=== PATIENT | female | born 1975 | race Caucasian/White ===

== ENCOUNTER → 2021-11-04 12:01 | Outpatient (CLI) | payer OTHER, SELFPAY ==
--- NOTE | ~2021-11-04 | DEXA_ITS ---
Bone Density Report Name: OCHOA FRAGOSO Age: 46 Sex: Female Ethnicity: White Date of : 1975 Indication: postmenopausal; height loss; hysterectomy; Referring Provider: CESAR JERRY Study: Bone densitometry was performed. Exam Date: November 04, 2021 Accession number: [id number] Bone Density: Region BMD T-score Z-score Classification AP Spine (L1-L4) 1.012 -0.3 0.1 Normal Femoral Neck (Left) 0.782 -0.6 -0.2 Normal Total Hip (Left) 0.946 0.0 0.3 Normal Femoral Neck (Right) 0.769 -0.7 -0.3 Normal Total Hip (Right) 0.918 -0.2 0.1 Normal Total Hip Mean 0.932 -0.1 0.2 Normal World Health Organization criteria for BMD impression classify patients as: Normal (T-score at or above -1.0), Osteopenia (T-score between -1.0 and -2.5), or Osteoporosis (T-score at or below -2.5). 10-year Fracture Risk: FRAX not reported because: All T-scores for Spine Total, Hip Total, Femoral Neck at or above -1.0 Clinical Information Provided by Patient: Has used the following medications: Vitamin D, MTV, ARMOUR THYROID Has the following medical conditions: Hysterectomy Patient maximum height was 68.0 Menopause Age: 30 Drinks caffeinated beverages Onset of menses at age 13 Number of children 3 Impression: The patient has normal bone mass. Discussion: BONE DENSITY IS ABOVE THE MINIMUM DESIRABLE LEVEL AT ALL SKELETAL SITES TESTED. This patient?s bone mineral density is above the minimum desirable level (T-score -1.0 or better) at all sites measured. The patient should follow a healthful lifestyle (good nutrition with adequate calcium and vitamin D, and appropriate weight-bearing exercise). Follow-Up: Consider repeating this study in 5 years or sooner if there is some new clinical indication. Reported by: [facility] on 11/04/2021 12:41:00 PM. Reviewed, dictated and finalized at location AMikayla BUCK
--- NOTE | ~2021-11-04 | MM_ITS ---
EXAMINATION: MM screening nevin BI w keith HISTORY: Screening mammogram TECHNIQUE: Craniocaudal and mediolateral oblique 3-D tomosynthesis images were obtained and synthetic 2-D images were generated. CAD analysis was submitted and interpreted. COMPARISON: No prior mammogram is available for comparison at this institution. BREAST PARENCHYMAL COMPOSITION: There are scattered areas of fibroglandular density. FINDINGS: RIGHT BREAST: There is no suspicious mass, calcification, or architectural distortion to suggest taylor gnancy. LEFT BREAST: There is a possible mass in the upper outer quadrant of the breast. IMPRESSION: 1. Possible left breast mass which may represent the patient's baseline however no comparison is curr ently available. 2. Comparison with prior mammograms is necessary. BI-RADS Category 0: Incomplete: Needs comparison with prior mammograms. Reviewed, dictated and finalized at location A. IMPRESSION: 1. Possible left breast mass which may represent the patient's baseline however no comparison is currently available. 2. Comparison with prior mammograms is necessary. BI-RADS Category 0: Incomplete: Needs comparison with prior mammograms.
== END ==
PROVIDERS: PCP Family Medicine; Visit Provider Obstetrics & Gynecology
DX: Z12.31 Encounter for screening mammogram for malignant neoplasm of breast (principal); Z78.0 Asymptomatic menopausal state; R92.8 Other abnormal and inconclusive findings on diagnostic imaging of breast
CPT/HCPCS: 77063; 77067; 77080

== ENCOUNTER → 2021-12-07 09:07 | Outpatient (CLI) | payer OTHER, SELFPAY ==
--- NOTE | ~2021-12-07 | MMUS_ITS ---
EXAMINATION: MM diagnostic nevin LT w keith, US breast LT limited HISTORY: Possible mass in upper outer quadrant of left breast on 11/04/2021 screening mammogram TECHNIQUE: Additional 3-D tomosynthesis images of the left breast were performed and synthetic 2-D im ages were generated. CAD analysis was submitted and interpreted. High resolution targeted posterior l eft 2-3:00 breast ultrasound was performed. COMPARISON: 11/04/2021, 08/08/2020, 06/15/2018 bilateral screening mammogram examinations FINDINGS: MAMMOGRAPHIC FINDINGS: Approximately 3.8 x 6 mm circumscribed mass is suggested posteriorly in the outer mid to upper left b reast (ML Tomosynthesis image 24/85). ULTRASOUND: No suspicious mass or shadowing is detected in the area of concern. IMPRESSION: 1. Probable benign finding 2. 6 month diagnostic left mammogram follow-up is recommended, with ultrasound if required BI-RADS category 3, probably benign findings. Reviewed, dictated and finalized at location A. IMPRESSION: 1. Probable benign finding 2. 6 month diagnostic left mammogram follow-up is recommended, with ultrasound if required BI-RADS category 3, probably benign findings.
== END ==
PROVIDERS: PCP Family Medicine; Visit Provider Obstetrics & Gynecology
DX: N63.21 Unspecified lump in the left breast, upper outer quadrant (principal)
CPT/HCPCS: 76642; 77061; 77065; G0279

== ENCOUNTER → 2022-06-09 08:51 | Outpatient (CLI) | payer OTHER, SELFPAY ==
--- NOTE | ~2022-06-09 | MMUS_ITS ---
EXAMINATION: MM diagnostic nevin LT w keith, US breast LT limited HISTORY: Follow-up left breast asymmetry. TECHNIQUE: Additional 3-D tomosynthesis images of the left breast were performed and synthetic 2-D im ages were generated. CAD analysis was submitted and interpreted. High resolution Limited left breast ultrasound was performed. COMPARISON: Comparison to multiple prior studies sequentially, with oldest reviewed study dated 05/20. BREAST PARENCHYMAL COMPOSITION: BREAST PARENCHYMAL COMPOSITION: There are scattered areas of fibroglandular density. FINDINGS: MAMMOGRAPHIC FINDINGS: There is a stable small mass in the upper outer quadrant of the left breast posteriorly with central lucency and circumscribed margins. ULTRASOUND: Limited left breast ultrasound: At 2-3:00, 6 cm from the nipple there is an oval circumscribed hypoec hoic mass with internal echogenic foci measuring 8 x 3 x 6 mm, most likely benign intramammary lymph node. IMPRESSION: 1. Probable benign left breast mass. 2. Recommend 6 month follow-up diagnostic left mammogram and ultrasound BI-RADS category 3, probably benign findings. Reviewed, dictated and finalized at location A. ER IMPRESSION: 1. Probable benign left breast mass. 2. Recommend 6 month follow-up diagnostic left mammogram and ultrasound BI-RADS category 3, probably benign findings.
== END ==
PROVIDERS: PCP Obstetrics & Gynecology; Visit Provider Obstetrics & Gynecology
DX: R92.8 Other abnormal and inconclusive findings on diagnostic imaging of breast (principal)
CPT/HCPCS: 76642; 77061; 77065; G0279

== ENCOUNTER → 2022-06-22 11:07 | Outpatient (CLI) | payer OTHER, SELFPAY ==
--- NOTE | ~2022-06-22 | XR_ITS ---
XR ankle RT min 3V DATE: 06/22/2022 11:23 INDICATION: Right ankle injury TECHNIQUE: 4 views COMPARISON: None FINDINGS: No fracture or dislocation of the ankle or disruption of the ankle mortise. No periosteal r eaction or bone destruction. IMPRESSION: Negative Reviewed, dictated and finalized at location B. MACY BUYER IMPRESSION: Negative
== END ==
PROVIDERS: PCP Family Medicine; Visit Provider Family Medicine
DX: S99.911A Unspecified injury of right ankle, initial encounter (principal); T14.90XA Injury, unspecified, initial encounter
CPT/HCPCS: 73610

== ENCOUNTER → 2022-12-07 09:21 | Outpatient (CLI) | payer OTHER, SELFPAY ==
--- NOTE | ~2022-12-07 | MMUS_ITS ---
EXAMINATION: MM diagnostic nevin BI w keith, US breast LT limited HISTORY: Six-month follow-up of 2-3:00 oval circumscribed hypoechoic mass TECHNIQUE: ML, MLO and CC 3-D tomosynthesis images of both breasts were performed and synthetic 2-D i mages were generated. CAD analysis was submitted and interpreted. High resolution targeted left breas t ultrasound examination at L2-3 o'clock 6 cm from nipple was performed. COMPARISON: 06/09/2023 diagnostic left mammogram and limited left breast ultrasound 12/07/2021 diagnostic left mammogram and limited left breast ultrasound 11/04/2021 bilateral screening mammogram BREAST PARENCHYMAL COMPOSITION: The breasts are almost entirely fatty. FINDINGS: MAMMOGRAPHIC FINDINGS: No suspicious mass or architectural distortion, malignant calcification, skin thickening or retractio n or significant new or developing density is detected. ULTRASOUND: No suspicious mass or shadowing, cyst or other significant sonographic finding is noted in the 2-3 o' clock lesion region. IMPRESSION: 1. No mammographic evidence of malignancy 2. Routine annual mammographic screening is recommended BI-RADS Category 1: Negative Reviewed, dictated and finalized at location A. IMPRESSION: 1. No mammographic evidence of malignancy 2. Routine annual mammographic screening is recommended BI-RADS Category 1: Negative
== END ==
PROVIDERS: PCP Family Medicine; Visit Provider Obstetrics & Gynecology
DX: R92.8 Other abnormal and inconclusive findings on diagnostic imaging of breast (principal); N63.20 Unspecified lump in the left breast, unspecified quadrant
CPT/HCPCS: 76642; 77062; 77066; G0279

== ENCOUNTER 2022-12-14 00:10 | Day surgery (SDC) | payer OTHER, SELFPAY ==
[2022-12-01 09:16] VITALS: BMI 23.4
--- NOTE | 2022-12-13 13:07 | PM.HPGS ---
History of Present Illness History of Present Illness Consent: Risks, benefits, and alternatives have been discussed and questions answered. Patient agrees to proceed with procedure. Chief complaint: neoplasm screening Narrative: Albina Go is a 47 year old female referred for colon cancer screening. Review of Systems Review of Systems: All systems reviewed & are unremarkable except as noted in HPI and below PMFSH Past Medical History Medical History Thyroid disorder Surgical History Surgical History S/P correction of deviated nasal septum S/P laparoscopic supracervical hysterectomy S/P thyroidectomy [place] teeth removed Family History Family History Other Breast cancer Depression Diabetes mellitus Heart disease Hypertension Lung cancer Thyroid disorder Social History Social History Smoking status: Never smoker Alcohol intake: current Drinks per week: 1 Substance use: never Substance use type: does not use Lack of Transportation: No Lack of Food: Never True Current Housing: I Have Housing Concerned About Future Housing: No Difficulty Paying Gas/Electric Bills: No Difficulty Paying for Meds: No Currently Unemployed: No Education: High School Diploma/GED Difficulty w/ Childcare or Family Care: No Living arrangements: with family Spiritual care concerns: No Meds Home Medications and Allergies Home Medications Medication Instructions Recorded Confirmed Type ascorbic acid (vitamin C) 1,000 mg 1 g PO DAILY 07/27/21 12/01/22 History tablet cetirizine 10 mg tablet (24Hour 10 mg PO DAILY 07/27/21 12/01/22 History Allergy) cholecalciferol (vitamin D3) 125 125 mcg PO DAILY 07/27/21 12/01/22 History mcg (5,000 unit) capsule magnesium 200 mg tablet 400 mg PO DAILY 07/27/21 12/01/22 History mecobalamin (vitamin B12) 5,000 2,500 mcg PO DAILY 07/27/21 12/01/22 History mcg lozenge spironolactone 50 mg tablet 150 mg PO DAILY 07/27/21 12/01/22 History thyroid (pork) 120 mg tablet 120 mg PO DAILY 07/27/21 12/01/22 History ([place] Thyroid) zinc 50 mg tablet 50 mg PO DAILY 07/27/21 12/01/22 History Allergies Allergy/AdvReac Type Severity Reaction Status Date / Time nitrous oxide Allergy Severe Unknown Verified 12/14/22 07:15 morphine Allergy Mild high fever Verified 12/14/22 07:15 Exam Const: General: alert Orientation/consciousness: patient oriented x3 Resp: Auscultation: clear to auscultation bilaterally Cardio: Rhythm: regular rhythm GI: GI Palp: Yes Soft to palpation and No Tenderness to palpation present (GI) Neuro: General: patient oriented x3 Assessment and Plan Assessment and plan (1) Colon cancer screening: Code(s): Z12.11 - Encounter for screening for malignant neoplasm of colon Status: Acute Assessment and Plan: Colonoscopy with possible biopsy or polypectomy or cautery or injection of substances.
[2022-12-14 07:17] VITALS: BP 123/81; PULSE 74; RESP 16; TEMP 36.3; O2SAT 100
--- NOTE | 2022-12-14 07:23 | WPDANESEPPF ---
Anes - Initial Pre Proc Eval Procedure: Operation Date: 12/14/22 08:30 Proposed Procedures p Screening Colonoscopy - Corey Witt MD Date/Time: 12/14/22 07:23 Surgeon: Corey Witt MD Pre Op Diagnosis: neoplasm screening Patient Data Age: 47 Gender: F Height: 1.73 m Weight: 77.2 kg Last Vital Signs Temp 97.3 F L 12/14/22 07:17 Pulse 74 12/14/22 07:17 Resp 16 12/14/22 07:17 BP 123/81 12/14/22 07:17 Pulse Ox 100 12/14/22 07:17 O2 Del Method Room Air 12/14/22 07:17 Allergies Allergy/AdvReac Type Severity Reaction Status Date / Time nitrous oxide Allergy Severe Unknown Verified 12/14/22 07:15 morphine Allergy Mild high fever Verified 12/14/22 07:15 Home Medications Medication Instructions Recorded Confirmed Type ascorbic acid (vitamin C) 1,000 mg 1 g PO DAILY 07/27/21 12/01/22 History tablet cetirizine 10 mg tablet (24Hour 10 mg PO DAILY 07/27/21 12/01/22 History Allergy) cholecalciferol (vitamin D3) 125 125 mcg PO DAILY 07/27/21 12/01/22 History mcg (5,000 unit) capsule magnesium 200 mg tablet 400 mg PO DAILY 07/27/21 12/01/22 History mecobalamin (vitamin B12) 5,000 2,500 mcg PO DAILY 07/27/21 12/01/22 History mcg lozenge spironolactone 50 mg tablet 150 mg PO DAILY 07/27/21 12/01/22 History thyroid (pork) 120 mg tablet 120 mg PO DAILY 07/27/21 12/01/22 History ([place] Thyroid) zinc 50 mg tablet 50 mg PO DAILY 07/27/21 12/01/22 History Patient hx anesthesia problems: none Family hx anesthesia problems: none Results Review: All pre-operative results and documents have been reviewed as part of the pre-operative evaluation. [facility] Past Medical History Medical History Thyroid disorder Surgical History Surgical History S/P correction of deviated nasal septum S/P laparoscopic supracervical hysterectomy S/P thyroidectomy [place] teeth removed Family History Family History Other Breast cancer Depression Diabetes mellitus Heart disease Hypertension Lung cancer Thyroid disorder Social History Social History Smoking status: Never smoker Alcohol intake: current Drinks per week: 1 Substance use: never Substance use type: does not use Lack of Transportation: No Lack of Food: Never True Current Housing: I Have Housing Concerned About Future Housing: No Difficulty Paying Gas/Electric Bills: No Difficulty Paying for Meds: No Currently Unemployed: No Education: High School Diploma/GED Difficulty w/ Childcare or Family Care: No Living arrangements: with family Spiritual care concerns: No Anes - Eval Final PreProcedure Day of Procedure 12/14/22 07:23 Patient weight: normal Heart: regular rate and rhythm Lungs: clear to auscultation Airway: Mallampati scale class II Neurological: alert and oriented Last oral intake: >/= 8 hours ASA classification: II Emergent: no Anesthetic plan: proceed Anesthesia type and monitoring: general GIVS and standard monitoring Results Review: All pre-operative results and documents have been reviewed as part of the pre-operative evaluation. Informed Consent: The patient's anesthetic plan and its attendant risks and benefits were discussed with the patient/family/POA. Questions were solicited and answers provided to the satisfaction of the patient/family/POA.
[2022-12-14] MEDS: LACTATED RINGERS 1,000 ML 150 ML IV CONT (07:33)
[2022-12-14 08:14] VITALS: BP 117/78; PULSE 67; RESP 20; O2SAT 100
[2022-12-14 08:24] VITALS: BP 119/79; PULSE 65; RESP 19; O2SAT 100
[2022-12-14 08:34] VITALS: BP 120/81; PULSE 62; RESP 16; O2SAT 100
== END 2022-12-14 08:41 | disposition home or self-care (01) ==
PROVIDERS: PCP Family Medicine; Visit Provider Internal Medicine Gastroenterology
PROC: 0DJD8ZZ Inspection of Lower Intestinal Tract, Via Natural or Artificial Opening Endoscopic (ICD-10-PCS; CPT 45378; principal; 2022-12-14 08:30)
DX: Z12.11 Encounter for screening for malignant neoplasm of colon (principal); K64.8 Other hemorrhoids; K57.30 Diverticulosis of large intestine without perforation or abscess without bleeding; E89.0 Postprocedural hypothyroidism
CPT/HCPCS: 45378; J2704; J7120

== ENCOUNTER 2024-03-22 13:38 | Outpatient (CLI) | payer OTHER, SELFPAY ==
--- NOTE | ~2024-03-22 | MM_ITS ---
EXAMINATION: MM screening nevin BI w keith HISTORY: Screening TECHNIQUE: Craniocaudal and mediolateral oblique 3-D tomosynthesis images were obtained and synthetic 2-D images were generated. CAD analysis was submitted and interpreted. COMPARISON: Comparison to multiple prior studies sequentially, with oldest reviewed study dated 08/08. BREAST PARENCHYMAL COMPOSITION: Not dense: There are scattered areas of fibroglandular density. FINDINGS: There are scattered areas of developing fat necrosis in both breasts. Correlate for history of trauma. There is no evidence of suspicious mass, calcification, or architectural distortion to galo ggest malignancy in either breast. There has been no suspicious interval change. IMPRESSION: 1. No mammographic evidence of malignancy. 2. Recommend routine screening mammography in one year. BI-RADS Category 1: Negative Reviewed, dictated and finalized at location B.
== END 2024-03-22 13:39 | disposition home or self-care (01) ==
LOC: CHSIMG 13:39
PROVIDERS: PCP Family Medicine; Visit Provider Obstetrics & Gynecology
DX: Z12.31 Encounter for screening mammogram for malignant neoplasm of breast (principal)
CPT/HCPCS: 77063; 77067

== ENCOUNTER 2025-06-12 12:11 | Emergency (ER) | payer OTHER, SELFPAY ==
--- NOTE | ~2025-06-12 | CT_ITS ---
EXAMINATION: CT BRAIN W/O DATE: 06/12/2025 14:03 INDICATION: Headache TECHNIQUE: Computed tomography (CT) of the head was performed without intravenous contrast. The dose-length product was 605.33 mGy-cm. Automated exposure control and iterative reconstruction technique were employed. COMPARISON: No prior studies for comparison. FINDINGS: Normal brain parenchymal volume for age. Normal nelson-white differentiation. No acute intracranial hemorrhage, infarction, mass or mass effect. No ventriculomegaly or midline shift. Midline sagittal images demonstrate a normal corpus callosum, craniovertebral junction and sella turcica. Basilar cisterns are patent. Paranasal sinuses and mastoids are pneumatized. No depressed skull fractures. IMPRESSION: 1. No acute intracranial abnormality. Reviewed, dictated and finalized at location O. FORCE MANAGEMENT ANALYST
--- NOTE | ~2025-06-12 | XR_ITS ---
EXAMINATION: XR chest 2V 06/12/2025 14:05 INDICATION: Headache PROCEDURE: 2 view chest COMPARISON: No prior studies for comparison. FINDINGS: The lungs are clear. The cardiomediastinal silhouette is within normal limits. There are no pleural effusions. There is no pneumothorax suspected. IMPRESSION: 1: NO ACUTE CARDIOPULMONARY DISEASE. Reviewed, dictated and finalized at location O. RER
[2025-06-12 12:18] VITALS: BP 147/95; PULSE 97; RESP 16; TEMP 36.6; O2SAT 100
--- NOTE | 2025-06-12 13:53 | ECG_ITS ---
Test Date: 2025-06-12 14:19:41 Measurements Intervals [place] Rate: 67 P: 3 [place]: 148 QRS: 59 QRSD: 91 T: 28 QT: 393 QTc: 415 Interpretive Statements SINUS RHYTHM MODERATE T-WAVE ABNORMALITY, CONSIDER ANTERIOR ISCHEMIA ABNORMAL ECG No previous ECG available for comparison Electronically Signed On 06-12-2025 16:38:05 [employer] by Owen Quevedo D.O.
[2025-06-12 14:22] VITALS: BP 125/88; PULSE 72; RESP 16
[2025-06-12 14:22] LABS: Hematocrit 41.6 % (37.0-47.0); Hemoglobin 14.0 g/dL (12.0-15.0); Immature Granulocyte Percent A 0.1 % (0-0.5); Lymphocytes Absolute Auto 2.31 K/mm3 (0.9-3.2); Mean Corpuscular HGB Conc 33.7 g/dl (32-36); Mean Corpuscular Hemoglobin 31.4 pg (26-34); Mean Corpuscular Volume 93.3 fl (80-100); Nucleated Red Blood Cells Absolute Auto 0.000 K/mm3 (0.0-0.012); Nucleated Red Blood Cells Perc 0.0 % (0.0-0.2); Platelet Count Result 229 k/mm3 (150-375); Red Blood Count 4.46 M/mm3 (4.2-5.4); White Blood Count 7.2 K/mm3 (4.5-10.0)
[2025-06-12 14:25] VITALS: BP 125/88; PULSE 80; RESP 16; O2SAT 98
[2025-06-12 14:31] VITALS: BP 126/78; PULSE 67; RESP 20; O2SAT 100
[2025-06-12 14:31] LABS: Alanine Aminotransferase 35 U/L (6-35); Albumin Level 4.5 g/dL (3.5-5.1); Alkaline Phosphatase 106 U/L (38-126); Anion Gap 9 mmol/L (4-12); Aspartate Amino Transferase 36 U/L (14-36); Bilirubin,Total 0.5 mg/dL (0.2-1.3); Blood Urea Nitrogen 20 mg/dL (7-17); Calcium 9.4 mg/dL (8.4-10.2); Carbon Dioxide 24 mmol/L (22-30); Chloride 109 mmol/L (98-107); Estimated CRCL calculation 66 ml/min; Estimated Glomerular Filt Rate > 60; Glucose 84 mg/dL (65-110); Potassium 4.1 mmol/L (3.4-5.0); Sodium 142 mmol/L (137-145); Total Protein 7.7 g/dL (6.3-8.2)
[2025-06-12 14:35] LABS: BEDSIDEPREGUCG Negative (Negative)
[2025-06-12] MEDS: METOCLOPRAMIDE HCL INJ 10 MG/2 ML VIAL IV PUSH (14:35)
[2025-06-12] MEDS: SODIUM CHLORIDE 0.9% IV 1,000 ML 999 ML IV CONT (14:36)
[2025-06-12] MEDS: KETOROLAC 30 MG/ML VIAL (*BKC) IV PUSH (14:37)
[2025-06-12 14:43] LABS: Troponin I < 0.012 ng/mL (0.000-0.034)
[2025-06-12 14:56] LABS: INR 1.0; Partial Thromboplastin Time 26.8 Seconds (22.3-36.8); Prothrombin Time 13.3 Seconds (11.1-14.7)
[2025-06-12 15:01] VITALS: BP 118/81; PULSE 77; RESP 16; O2SAT 100
--- NOTE | 2025-06-12 16:40 | ED_ITS ---
HPI - Neuro Symptoms/Deficit General Chief Complaint: Neuro Symptoms/Deficit Stated Complaint: intermittent diff speaking x 3 days Time Seen by Provider: 06/12/25 13:40 History of Present Illness HPI Narrative: Patient is a 49-year-old female who presents to the ER with headache. Ongoing for 5 days. Left-sided posterior. Has felt foggy when thinking and sometimes has trouble getting her words out. She has had increased holiday stress recently. No formal diagnosis of migraines. She receives Botox so does not move her forehead. She has felt slightly odd over her left cheek over last couple of days. No history of migraine. Related Data Home Medications ?Medication ?Instructions ?Recorded ?Confirmed ?Last Taken ?Type ascorbic acid (vitamin C) 1,000 mg 1 g PO DAILY 03/20/24 Unknown History tablet cetirizine 10 mg tablet (24Hour 10 mg PO DAILY 2 03/20/24 Unknown History Allergy) cholecalciferol (vitamin D3) 125 125 mcg PO DAILY 02/0703/20/24 Unknown History mcg (5,000 unit) capsule magnesium 200 mg tablet 400 mg PO DAILY 07/27/2108/12 Unknown History mecobalamin (vitamin B12) 5,000 2,500 mcg PO DAILY 02/0703/20/24 Unknown History mcg lozenge spironolactone 50 mg tablet 150 mg PO DAILY 07/27/21 1 Unknown History thyroid (pork) 120 mg tablet 120 mg PO DAILY 07/27/21 03/20/24 Unknown History ([place] Thyroid) zinc 50 mg tablet 50 mg PO DAILY 07/27/2108/12 Unknown History Allergies Allergy/AdvReac Type Severity Reaction Status Date / Time nitrous oxide Allergy Severe Unknown Verified 06/12/25 14:35 morphine Allergy Mild high fever Verified 06/12/25 14:35 Review of Systems 2 Review of Systems: All systems reviewed & are unremarkable except as noted in HPI and below Constitutional: Constitutional: Reports no additional constitutional complaints ENT: Reports system reviewed and no additional complaints, except as documented Cardiovascular: Cardiovascular: Reports no additional cardiovascular complaints Respiratory: Respiratory: Reports no additional respiratory complaints Neurologic: Reports system reviewed and no additional complaints, except as documented [facility] Past Medical History Medical History (Updated 06/12/25 @ 16:45 by Khadar Lee MD) Thyroid disorder Surgical History Surgical History (Updated 03/20/24 @ 11:17 by Nuvia Manzo [facility]) H/O abdominoplasty S/P laparoscopic supracervical hysterectomy [place] teeth removed S/P correction of deviated nasal septum S/P thyroidectomy Family History Family History Other Breast cancer Depression Diabetes mellitus Heart disease Hypertension Lung cancer Thyroid disorder Social History Social History Smoking status: Never smoker Alcohol intake: current Drinks per week: 1 Substance use: never Substance use type: does not use Lack of Transportation: No Lack of Food: Never True Current Housing: I Have Housing Concerned About Future Housing: No Difficulty Paying Gas/Electric Bills: No Difficulty Paying for Meds: No Currently Unemployed: No Education: High School Diploma/GED Difficulty w/ Childcare or Family Care: No Living arrangements: with family Spiritual care concerns: No Exam 2 Narrative: GENERAL: Well-appearing, well-nourished, and in no acute distress. HEAD: Normocephalic, atraumatic. EYES: PERRL and EOMI. ENT: Mucous membranes moist. NECK: Supple. CHEST: Clear to auscultation. No respiratory distress. HEART: Regular rate and rhythm. Normal peripheral pulses. ABDOMEN: Soft, nontender, nondistended. EXTREMITIES: Normal range of motion. No edema. SKIN: Warm, dry, no rash. NEURO: NIH stroke scale 0. Alert and oriented x3. Course Course Emergency Course: Unremarkable workup. Headache resolved after migraine cocktail. Appropriate for discharge home. Vital Signs Vital signs: Vital Signs Temperature 98 F 06/12/25 12:18 Pulse Rate 97 06/12/25 12:18 Respiratory Rate 16 06/12/25 12:18 Blood Pressure 147/95 H 06/12/25 12:18 Pulse Oximetry 100 06/12/25 12:18 Temperature 98 F 06/12/25 12:18 Pulse Rate 77 06/12/25 15:01 Respiratory Rate 16 06/12/25 15:01 Blood Pressure 118/81 06/12/25 15:01 Pulse Oximetry 100 06/12/25 15:01 MDM Differential Diagnosis Differential Diagnosis: Migraine headache, tension headache, CVA, aneurysm, subarachnoid hemorrhage, RESIDENCY DIRECTOR infection Lab Data [facility] [place] Lab Attestation statement: I personally reviewed the patient's lab results. 06/12/25 14:16 06/12/25 14:16 Labs: Lab Results 06/12/25 06/12/25 06/12/25 Range/Units 14:15 14:16 14:32 WBC 7.2 (4.5-10.0) K/mm3 RBC 4.46 (4.2-5.4) M/mm3 Hgb 14.0 (12.0-15.0) g/dL Hct 41.6 (37.0-47.0) % MCV 93.3 (80-100) fl MCH 31.4 (26-34) pg MCHC 33.7 (32-36) g/dl RDW 11.9 (11.5-14.5) % Plt Count 229 (150-375) k/mm3 MPV 9.3 (7.4-10.4) fl Immature Gran % (Auto) 0.1 (0-0.5) % Neut % (Auto) 56.9 (45.5-73.1) % Lymph % (Auto) 32.2 (18.3-44.2) % [place] % (Auto) 9.2 H (2.6-8.5) % Eos % (Auto) 1.3 (0-4.4) % Baso % (Auto) 0.3 (0.2-1.2) % Lymph # (Auto) 2.31 (0.9-3.2) K/mm3 [place] # (Auto) 0.7 H (0.1-0.6) K/mm3 Eos # (Auto) 0.1 (0-0.3) K/mm3 Baso # (Auto) 0.0 (0.0-0.1) K/mm3 Abs Immat Gran (auto) 0.01 (0.00-0.031) K/mm3 Absolute Neuts (auto) 4.1 (1.3-6.7) K/mm3 Absolute Nucleated RBC 0.000 (0.0-0.012) K/mm3 Nucleated RBC % 0.0 (0.0-0.2) % PT 13.3 (11.1-14.7) Seconds INR 1.0 APTT 26.8 (22.3-36.8) Seconds Sodium 142 (137-145) mmol/L Potassium 4.1 (3.4-5.0) mmol/L Chloride 109 H (98-107) mmol/L Carbon Dioxide 24 (22-30) mmol/L Anion Gap 9 (4-12) mmol/L BUN 20 H (7-17) mg/dL Creatinine 0.93 (0.7-1.0) mg/dL Estim Creat Clear Calc 66 ml/min Estimated GFR > 60 (59 - ) Glucose 84 (65-110) mg/dL POC Capillary Glucose 93 (65-105) mg/dl Calcium 9.4 (8.4-10.2) mg/dL Total Bilirubin 0.5 (0.2-1.3) mg/dL AST 36 (14-36) U/L ALT 35 (6-35) U/L Alkaline Phosphatase 106 (38-126) U/L Troponin I < 0.012 (0.000-0.034) ng/mL Total Protein 7.7 (6.3-8.2) g/dL Albumin 4.5 (3.5-5.1) g/dL POC Urine HCG, Qual Negative (Negative) Imaging Data Radiologist's impression: ITS Impressions Head CT 06/12/25 14:05 IMPRESSION: 1. No acute intracranial abnormality. Chest X-Ray 06/12/25 14:09 IMPRESSION: 1: NO ACUTE CARDIOPULMONARY DISEASE. ECG Data EKG #1: ECG completion date: 06/12/25 ECG completion time: 16:44 normal rate (67), sinus rhythm, non-specific ST changes, normal QRS and normal QT Discharge Plan Discharge Clinical Impression: Headache Patient Disposition: Home Condition: Stable Instructions: Acute Headache (ED) Additional Instructions: Try to stay well hydrated at home. Please return to the emergency department if you develop worsening of your headache or a new headache which is severe, associated with vision changes, associated with neck stiffness or fever, or if it is different from any other headache that you have had before. Return to the emergency department if you develop numbness, weakness or tingling or problems with coordination, or if you develop severe nausea and vomiting and are unable to keep down fluids at home. Patient Language: Chinese Prescriptions: No Action thyroid (pork) [[place] Thyroid] 120 mg tablet 120 mg PO DAILY spironolactone 50 mg tablet 150 mg PO DAILY cetirizine [24Hour Allergy] 10 mg tablet 10 mg PO DAILY mecobalamin (vitamin B12) 5,000 mcg lozenge 2,500 mcg PO DAILY Rx Instructions: allow to dissolve in mouth OR may chew lightly before swallowing magnesium 200 mg tablet 400 mg PO DAILY zinc 50 mg tablet 50 mg PO DAILY cholecalciferol (vitamin D3) 125 mcg (5,000 unit) capsule 125 mcg PO DAILY ascorbic acid (vitamin C) 1,000 mg tablet 1 g PO DAILY Follow-up/Referrals: Allison,MD Lam [Primary Care Provider, Unknown] - 1 Week
== END 2025-06-12 17:01 | disposition home or self-care (01) ==
PROVIDERS: Emergency Provider Emergency Medicine; PCP Family Medicine
DX: R51.9 Headache, unspecified (principal)
CPT/HCPCS: 36415; 70450; 71046; 80053; 81025; 82948; 84484; 85025; 85610; 85730; 93005; 96361; 96374; 96375; 99284; J1200; J1885; J2765; J7030